=== PATIENT | male | born 1960 | race Caucasian/White ===

== ENCOUNTER 2023-01-20 19:39 | Emergency (ER) | payer BC, OTHER ==
[2023-01-20] MEDS ORDERED: SODIUM CHLORIDE 1,000 ML IV ONE (20:01)
[2023-01-20] MEDS ORDERED: KETOROLAC TROMETHAMINE 30 MG/1 ML VIAL IVPUSH ONE (20:01)
[2023-01-20] MEDS ORDERED: morphine CARPU-JECT 2 MG/1 ML DISP.SYRIN IVPUSH ONE (20:01)
[2023-01-20 20:02] VITALS: BP 169/91; PULSE 62; RESP 18; TEMP 97.7; BMI 33.0
[2023-01-20] MEDS ORDERED: KETOROLAC TROMETHAMINE 30 MG/1 ML VIAL ONE (20:05)
[2023-01-20] MEDS ORDERED: morphine SULFATE 4 MG/ML VIAL ONE (20:05)
[2023-01-20] MEDS ORDERED: ONDANSETRON 4 MG/2 ML VIAL IVPUSH ONE (20:21)
[2023-01-20] MEDS ORDERED: ONDANSETRON 4 MG/2 ML VIAL ONE (20:23)
[2023-01-20 20:35] LABS: HEMOGLOBIN 14.8 G/dL (11.7-16.9); MCH 31.7 pg (25.7-33.7); MCHC 34.3 g/dl (32.0-35.9); MEAN CELL VOLUME 92.3 fl (80-96); MEAN PLT VOLUME 8.6 fl (7.5-11.1); PLATELET COUNT 238.9 10^3/uL (134-434); RBC 4.66 10^6/uL (4.00-5.60); RDW 14.1 % (11.9-15.9); WHITE BLOOD COUNT 13.5 10^3/uL (4.0-10.8)
[2023-01-20 20:39] LABS: ALBUMIN 4.3 g/dl (3.4-5.0); BILIRUBIN,TOTAL 0.8 mg/dl (0.2-1); CALCIUM 9.2 mg/dl (8.5-10); CREATININE 1.5 mg/dl (0.55-1.3); TOT PROT 7.3 g/dl (6.4-8.2)
[2023-01-20] MEDS ORDERED: CIPROFLOXACIN 250 MG TABLET (RESTRICTED TO ID) PO ONE (22:41)
[2023-01-20] MEDS ORDERED: CIPROFLOXACIN 500 MG TABLET (RESTRICTED TO ID) PO ONE (22:41)
== END 2023-01-20 22:52 | disposition home or self-care (01) ==
LOC: FER 19:39
PROC: 3E033NZ Introduction of Analgesics, Hypnotics, Sedatives into Peripheral Vein, Percutaneous Approach (ICD-10-PCS; principal; 2023-01-20)
PROC: 3E033GC Introduction of Other Therapeutic Substance into Peripheral Vein, Percutaneous Approach (ICD-10-PCS; 2023-01-20)
PROC: 3E0337Z Introduction of Electrolytic and Water Balance Substance into Peripheral Vein, Percutaneous Approach (ICD-10-PCS; 2023-01-20)
DX: N23 Unspecified renal colic (principal)
CPT/HCPCS: 36415; 74176-TC; 80053; 81003; 81015; 85027; 99284-25

== ENCOUNTER 2024-06-23 01:26 | Emergency (ER) | payer BC ==
[2024-06-23 01:34] VITALS: BP 139/78; PULSE 73; RESP 18; TEMP 99.1; BMI 32.1
[2024-06-23] MEDS: SODIUM CHLORIDE 1,000 ML IV ONE (02:02)
[2024-06-23] MEDS ORDERED: morphine SULFATE 4 MG/ML VIAL ONE (02:04)
[2024-06-23] MEDS: morphine CARPU-JECT 4 MG/1 ML DISP.SYRIN IVPUSH ONE (02:06)
[2024-06-23 02:54] LABS: HEMATOCRIT 39.6 % (35.4-49); HEMOGLOBIN 13.6 GM/dL (11.7-16.9); MCH 31.4 pg (25.7-33.7); MCHC 34.5 g/dl (32.0-35.9); MEAN CELL VOLUME 91.2 fl (80-96); MEAN PLT VOLUME 8.8 fl (7.5-11.1); PLATELET COUNT 235 10^3/uL (134-434); RBC 4.34 M/mm3 (4.00-5.60); RDW 13.7 % (11.9-15.9); WHITE BLOOD COUNT 13.1 K/mm3 (4.0-10.0)
[2024-06-23 03:49] LABS: ALBUMIN 3.6 g/dl (3.4-5.0); BILIRUBIN,TOTAL 0.9 mg/dL (0.2-1); BLOOD UREA NITROGEN 30.5 mg/dL (7-18); CALCIUM 8.6 mg/dL (8.5-10.1); CREATININE 2.4 mg/dL (0.55-1.3); POTASSIUM 4.1 mmol/L (3.5-5.1); TOT PROT 6.4 g/dl (6.4-8.2)
== END 2024-06-23 09:06 | disposition home or self-care (01) ==
LOC: FER 01:26
PROC: 3E033NZ Introduction of Analgesics, Hypnotics, Sedatives into Peripheral Vein, Percutaneous Approach (ICD-10-PCS; principal; 2024-06-23)
PROC: 3E0337Z Introduction of Electrolytic and Water Balance Substance into Peripheral Vein, Percutaneous Approach (ICD-10-PCS; 2024-06-23)
DX: R10.32 Left lower quadrant pain (principal); N13.2 Hydronephrosis with renal and ureteral calculous obstruction; R16.0 Hepatomegaly, not elsewhere classified; N18.9 Chronic kidney disease, unspecified
CPT/HCPCS: 36415; 74176-TC; 80053; 81003; 81015; 85027; 87086; 99284-25

== ENCOUNTER 2024-07-27 20:18 | Emergency (ER) | payer BC ==
[2024-07-27 20:26] VITALS: BP 129/72; PULSE 56; RESP 16; TEMP 98.4; BMI 33.0
[2024-07-27 23:51] LABS: HIV INTERPRETATION NEGATIVE (NEGATIVE)
== END 2024-07-27 22:03 | disposition home or self-care (01) ==
LOC: FER 20:18
DX: R91.8 Other nonspecific abnormal finding of lung field (principal); R05.9 Cough, unspecified; Z20.822 Contact with and (suspected) exposure to COVID-19
CPT/HCPCS: 0241U-QW; 36415; 71046-TC-FY; 86803; 87389; 99284-25